=== PATIENT | male | born 1940 | race Caucasian/White ===

== ENCOUNTER 2017-06-15 12:08 | Emergency (ER) | payer BC ==
[~2017-06-15] VITALS: Ht 172.7 cm; Wt 79.2 kg
[2017-06-15] MEDS ORDERED: DEXL30CA5 PO (12:19)
[2017-06-15] MEDS ORDERED: ROSU5TAB PO (12:19)
[2017-06-15] MEDS ORDERED: CLOP1TAB15 PO (12:19)
[2017-06-15] MEDS ORDERED: ASPCH81X PO (12:19)
[2017-06-15] MEDS ORDERED: ALT/10 PO (12:19)
[2017-06-15] MEDS ORDERED: SODIUM CHLORIDE 0.9% 1000ML 1,000 ML IV STA ×2 (12:26→13:46)
[2017-06-15] MEDS ORDERED: DIAZEPAM INJ 5 MG/ML 2 ML CARP IV STA (12:34)
[2017-06-15] MEDS ORDERED: ACETAMINOPHEN IV 100 ML IV STA (12:34)
[2017-06-15] MEDS ORDERED: ONDANSETRON 8 MG/54 ML D5W IV ONE (12:45)
[2017-06-15] MEDS ORDERED: OPTIRAY 320 IV PRN (12:45)
[2017-06-15 12:53] LABS: BASO % 0.4 %; BASO ABS # 0.04 K/uL (0-0.2); COMPLETE YES; EOS % 1.8 %; IG% 0.8 %; LYMPH % 42.6 %; LYMPH ABS # 3.95 K/uL (1.2-3.4); MEAN CELL VOLUME 94.5 fL (80-100); MEAN CORPUSCULAR HEMOGLOBIN 31.3 pg (25-34); MEAN CORPUSCULAR HGB CONC 33.2 g/dl (32-36); MEAN PLATELET VOLUME 9.5 fL (7.4-10.4); MONO % 6.5 %; NEUT % 47.9 %; PLATELET COUNT 283 K/uL (130-400); RED BLOOD COUNT 4.34 M/uL (4.7-6.1); WHITE BLOOD COUNT 9.27 K/uL (4.8-10.8)
[2017-06-15 12:54] LABS: ISTAT CREATININE 0.9 mg/dl (0.6-1.3); ISTAT HEMOGLOBIN 13.9 g/dl (14.0-18.0); ISTAT IONIZED CALCIUM 1.17 mmol/l (1.12-1.32)
[2017-06-15 13:04] LABS: PARTIAL THROMBOPLASTIN RATIO 0.8; PROTHROMBIN TIME (PATIENT) 10.2 SECONDS (9.0-12.0)
--- NOTE | 2017-06-15 13:05 | DIAGNOSTIC IMAGING REPORT ---
HEAD WITHOUT CONTRAST (CT) CT DOSE: HISTORY: Mental status change STROKE ALERT TECHNIQUE: Multiaxial CT images of the head were performed without the use of intravenous contrast. A dose lowering technique was utilized adhering to the principles of ALARA. Comparison: None. Findings: The paranasal sinuses and mastoid air cells are clear. Evidence for acute hemorrhage involving the bulk of the ventricles. This involves the lateral ventricles, third, as well as fourth ventricle. It potentially is a parenchymal component to the central cerebellar hemisphere. There is no midline shift. There is no evidence for hydrocephalus. There are findings of moderate chronic small vessel change of aging. Impression: 1. Acute intraventricular hemorrhage involving the lateral third and fourth ventricles. 2. Possible parenchymal component involving the medial cerebellar hemispheres versus pontine medullary junction.. 3. No midline shift. The above report was generated using voice recognition software. It may contain grammatical, syntax or spelling errors. Electronically signed by: Wilfred Do M.D. 06/15/2017 1:03 PM Dictated Date/Time: 06/15/2017 12:59 PM
[2017-06-15 13:10] LABS: ALT/SGPT 23 U/L (12-78); BLOOD UREA NITROGEN 20 mg/dl (7-18); BUN/CREATININE RATIO 23.9 (10-20); CALCIUM 9.4 mg/dl (8.5-10.1); CARBON DIOXIDE 24 mmol/L (21-32); CHLORIDE 106 mmol/L (98-107); CREATININE 0.83 mg/dl (0.60-1.40); GLUCOSE 145 mg/dl (70-99); POTASSIUM 3.3 mmol/L (3.5-5.1); SODIUM 139 mmol/L (136-145)
[2017-06-15 13:15] VITALS: Ht 172.7 cm; Wt 79.2 kg
[2017-06-15] MEDS ORDERED: PROMETHAZINE HCL INJ 12.5 MG in SODIUM CHLORIDE 0.9% 50ML 50 ML IV STA (13:19)
[2017-06-15 13:21] LABS: ALKALINE PHOSPHATASE 113 U/L (45-117); AST/SGOT 23 U/L (15-37); THYROID STIMULATING HORMONE 0.538 uIu/ml (0.300-4.500)
[2017-06-15] MEDS ORDERED: PROMETHAZINE HCL INJ 25 MG/ML 1 ML VIAL ONE (13:21)
[2017-06-15 13:32] VITALS: BP 136/68; PULSE 76; TEMP 36.6; O2SAT 100
[2017-06-15 13:40] VITALS: BP 132/74; PULSE 73; TEMP 35.7; O2SAT 97
[2017-06-15 13:45] VITALS: O2SAT 98
[2017-06-15 14:34] VITALS: BP 124/71; PULSE 76; TEMP 35.7; O2SAT 99
--- NOTE | 2017-06-15 16:43 | EMERGENCY ROOM VISIT NOTE ---
History Report prepared by Alison: Juany Spence Under the Supervision of: Dr. Sinan Gutierrez M.D. First contact with patient: 12:26 Chief Complaint: DIZZY Stated Complaint: VISION PROBLEMS/VERTIGO Nursing Triage Summary: pt arrives via EMS reports after riding to the game got out of vehicle and walked to back became dizzy and was helped to the ground by spouse and others, reports MASON , Nausea and . pt reports last 2 days vision in R eye "was not right" History of Present Illness The patient is a 77 year old male who presents to the Emergency Room with complaints of persistent dizziness starting around 1130 today. The patient arrived in [place] from [place] for the game today. He got out of the car and was walking around it when he started feeling dizzy. He has never had this dizziness before. He did not have any symptoms prior to getting out of the car. He currently has a headache which he rates as a 9/10 in severity. He usually does not have headaches. He has not had any headaches in the past 2 weeks. He is nauseous. Yesterday, he had some blurry vision in his right eye. His did not notice any facial droop or slurred speech today. He has a history of TIA, right carotid stent, and hypertension. He has had a heart catheterization which was normal. He does not have any heart stents. Pt denies LOC, fevers, chills, diaphoresis, neck pain, chest pain, breathing difficulties , vomiting, abdominal pain, back pain, melena, hematochezia, urinary symptoms, numbness, weakness, lymphadenopathy, rash, or other complaints. Source of History: patient, spouse/significant other Onset: 1130 Position: other (global) Quality: other (dizziness) Timing: other (persistent) Associated Symptoms: + headache, + nausea Note: Pt reports blurry vision. Review of Systems See HPI for pertinent positives and negatives. A total of ten systems were reviewed and were otherwise negative. Past Medical & Surgical Medical Problems: (1) carotid stent (2) Hypercholesteremia (3) Hypertension (4) TIA (transient ischemic attack) Surgical Problems: (1) H/O cardiac catheterization Family History Noncontributory secondary to age. Social History Smoking Status: Former Smoker Marital Status: Housing Status: lives with family Occupation Status: retired Current/Historical Medications Scheduled Aspirin (Aspirin Chewable), 81 MG PO DAILY Clopidogrel (Plavix), 75 MG PO DAILY Dexlansoprazole (Dexilant), 30 MG PO DAILY Ramipril (Altace), 10 MG PO QPM Rosuvastatin Calcium (Crestor), 5 MG PO DAILY Allergies Coded Allergies: No Known Allergies (Unverified , 06/15/17) Physical Exam Vital Signs Date Time Temp Pulse Resp B/P (MAP) Pulse Ox O2 Delivery O2 Flow Rate FiO2 06/15/17 14:34 35.7 76 17 124/71 99 06/15/17 14:34 35.7 76 17 124/71 99 06/15/17 14:08 76 17 99 06/15/17 14:03 67 15 97 06/15/17 14:00 124/71 06/15/17 13:58 63 15 98 06/15/17 13:55 127/74 06/15/17 13:53 68 19 99 06/15/17 13:51 131/58 06/15/17 13:48 77 21 100 06/15/17 13:45 98 Nasal Cannula 2.0 06/15/17 13:43 81 25 98 06/15/17 13:40 35.7 73 19 132/74 97 2.0 06/15/17 13:40 127/66 06/15/17 13:38 77 19 99 06/15/17 13:35 132/74 06/15/17 13:33 77 18 100 06/15/17 13:32 36.6 76 17 136/68 100 2.0 06/15/17 13:30 136/68 06/15/17 13:28 80 22 06/15/17 13:26 138/59 06/15/17 13:23 85 29 100 06/15/17 13:21 180/102 06/15/17 13:18 79 24 100 06/15/17 13:13 80 23 100 06/15/17 13:11 100 Nasal Cannula 2.0 06/15/17 13:10 142/71 06/15/17 13:08 87 21 99 06/15/17 13:05 121/64 06/15/17 13:03 82 24 100 06/15/17 13:00 147/71 06/15/17 13:00 85 06/15/17 12:59 144/71 06/15/17 12:13 36.6 87 20 156/78 98 Room Air 06/15/17 12:13 156/78 Physical Exam GENERAL: Awake, alert, well appearing, no distress HENT: Normocephalic, atraumatic. TM's normal. Oropharynx unremarkable. EYES: PERRL. EOMI. Normal conjunctiva. Sclera non-icteric. NECK: Supple. No nuchal rigidity. FROM. No JVD or bruit. RESPIRATORY: CTA CARDIAC: RRR. No murmur. ABDOMEN: Soft, non distended. No tenderness to palpation. No rebound or guarding. No masses. RECTAL: Deferred. MUSCULOSKELETAL: Unremarkable. No edema. No discoloration. Gross motor strength symmetric. NEURO: No facial droop. Altered sensorium. Very lethargic, but responds to verbal stimuli. Ophthalmoplegia. No sensory or motor deficits noted. Speech normal. No pronator drift. SKIN: No rash or jaundice noted. LYMPH: No adenopathy. Medical Decision & Procedures ER Provider Diagnostic Interpretation: Radiology results as stated below per my review and radiologist interpretation: HEAD WITHOUT CONTRAST (CT) CT DOSE: HISTORY: Mental status change STROKE ALERT TECHNIQUE: Multiaxial CT images of the head were performed without the use of intravenous contrast. A dose lowering technique was utilized adhering to the principles of ALARA. Comparison: None. Findings: The paranasal sinuses and mastoid air cells are clear. Evidence for acute hemorrhage involving the bulk of the ventricles. This involves the lateral ventricles, third, as well as fourth ventricle. It potentially is a parenchymal component to the central cerebellar hemisphere. There is no midline shift. There is no evidence for hydrocephalus. There are findings of moderate chronic small vessel change of aging. Impression: 1. Acute intraventricular hemorrhage involving the lateral third and fourth ventricles. 2. Possible parenchymal component involving the medial cerebellar hemispheres versus pontine medullary junction.. 3. No midline shift. The above report was generated using voice recognition software. It may contain grammatical, syntax or spelling errors. Electronically signed by: Wilfred Do M.D. 06/15/2017 1:03 PM Dictated Date/Time: 06/15/2017 12:59 PM Laboratory Results 06/15/17 12:35 Red Blood Count 4.34, Mean Corpuscular Volume 94.5, Mean Corpuscular Hemoglobin 31.3, Mean Corpuscular Hemoglobin Concent 33.2, Mean Platelet Volume 9.5, Neutrophils (%) (Auto) 47.9, Lymphocytes (%) (Auto) 42.6, Monocytes (%) (Auto) 6.5, Eosinophils (%) (Auto) 1.8, Basophils (%) (Auto) 0.4, Neutrophils # (Auto) 4.44, Lymphocytes # (Auto) 3.95, Monocytes # (Auto) 0.60, Eosinophils # (Auto) 0.17, Basophils # (Auto) 0.04 06/15/17 12:35 Test 06/15/17 12:35 06/15/17 12:44 06/15/17 12:45 06/15/17 13:04 White Blood Count 9.27 K/uL (4.8-10.8) Red Blood Count 4.34 M/uL (4.7-6.1) Hemoglobin 13.6 g/dL (14.0-18.0) Hematocrit 41.0 % (42-52) Mean Corpuscular Volume 94.5 fL (80-100) Mean Corpuscular Hemoglobin 31.3 pg (25-34) Mean Corpuscular Hemoglobin Concent 33.2 g/dl (32-36) Platelet Count 283 K/uL (130-400) Mean Platelet Volume 9.5 fL (7.4-10.4) Neutrophils (%) (Auto) 47.9 % Lymphocytes (%) (Auto) 42.6 % Monocytes (%) (Auto) 6.5 % Eosinophils (%) (Auto) 1.8 % Basophils (%) (Auto) 0.4 % Neutrophils # (Auto) 4.44 K/uL (1.4-6.5) Lymphocytes # (Auto) 3.95 K/uL (1.2-3.4) Monocytes # (Auto) 0.60 K/uL (0.11-0.59) Eosinophils # (Auto) 0.17 K/uL (0-0.5) Basophils # (Auto) 0.04 K/uL (0-0.2) RDW Standard Deviation 48.1 fL (36.4-46.3) RDW Coefficient of Variation 13.9 % (11.5-14.5) Immature Granulocyte % (Auto) 0.8 % Immature Granulocyte # (Auto) 0.07 K/uL (0.00-0.02) Prothrombin Time 10.2 SECONDS (9.0-12.0) Prothromb Time International Ratio 1.0 (0.9-1.1) Activated Partial Thromboplast Time 21.0 SECONDS (21.0-31.0) Partial Thromboplastin Ratio 0.8 Est Creatinine Clear Calc Drug Dose 72.1 ml/min Estimated GFR () 98.4 Estimated GFR (Non- 84.9 BUN/Creatinine Ratio 23.9 (10-20) Calcium Level 9.4 mg/dl (8.5-10.1) Magnesium Level 2.0 mg/dl (1.8-2.4) Total Bilirubin 0.4 mg/dl (0.2-1) Direct Bilirubin 0.1 mg/dl (0-0.2) Aspartate Amino Transf (AST/SGOT) 23 U/L (15-37) Alanine Aminotransferase (ALT/SGPT) 23 U/L (12-78) Alkaline Phosphatase 113 U/L (45-117) Troponin I < 0.015 ng/ml (0-0.045) Total Protein 7.3 gm/dl (6.4-8.2) Albumin 3.6 gm/dl (3.4-5.0) Lipase 97 U/L (73-393) Thyroid Stimulating Hormone (TSH) 0.538 uIu/ml (0.300-4.500) Bedside Hemoglobin 13.9 g/dl (14.0-18.0) Bedside Hematocrit 41 % (42-52) Bedside Sodium 140 mEq/L (135-144) Bedside Potassium 3.5 mEq/L (3.3-5.0) Bedside Chloride 104 mEq/L (101-112) Bedside Total CO2 23 mEq/l (24-31) Anion Gap 17.0 mmol/L (16-25) Bedside Blood Urea Nitrogen 20 mg/dl (7-18) Bedside Creatinine 0.9 mg/dl (0.6-1.3) Bedside Glucose (other) 151 mg/dl (70-99) Bedside Ionized Calcium (Elayne) 1.17 mmol/l (1.12-1.32) Bedside Glucose 141 mg/dl (70-99) Bedside Prothrombin Time INR 1.0 (0.9-1.1) Laboratory results reviewed by me Medications Administered Medications (Trade) Dose Ordered Sig/Kate Route Start Time Stop Time Status Last Admin Dose Admin Sodium Chloride 1,000 ml @ 125 mls/hr Q8H STAT IV 06/15/17 12:26 06/15/17 13:47 DC 06/15/17 12:26 125 MLS/HR Ondansetron HCl (Zofran 8mg Iv) 8 mg NOW ONCE IV 06/15/17 12:45 06/15/17 12:46 DC 06/15/17 12:45 8 MG Acetaminophen 100 ml @ 400 mls/hr NOW STAT IV 06/15/17 12:34 06/15/17 12:48 DC 06/15/17 12:34 400 MLS/HR Promethazine HCl 12.5 mg/Sodium Chloride 50.5 ml @ 204 mls/hr NOW STAT IV 06/15/17 13:19 06/15/17 13:33 DC 06/15/17 13:23 204 MLS/HR Sodium Chloride 1,000 ml @ 50 mls/hr Q20H STAT IV 06/15/17 13:46 06/15/17 15:00 DC 06/15/17 13:46 50 MLS/HR ECG Indication: other (dizziness) Rate (beats per minute): 93 Rhythm: normal sinus Findings: nonspecific-ST abn, no ectopy ED Course 1226: NSS 1000 ml @ 125 mls/hr IV. 1232: The patient was evaluated in room C7. A complete history and physical exam was performed. 1234: Acetaminophen 100 ml @ 400 mls/hr IV. 1245: Ondansetron HCl 8 mg IV. 1302: I spoke with Dr. Do of radiology. He confirmed the presence of an intracerebral hemorrhage. 1308: I discussed the patient's case with Dr. Contreras, [facility] neurosurgery. He has accepted the patient for transfer. He will be flown to their facility. 1313: I reevaluated the patient. He is still sleepy, but easily arouses. He is answering questions appropriately and moving extremities appropriately. I discussed the test results with him and his family. They verbalized agreement of the treatment plan. He will be flown to [facility] for further treatment. 1319: Promethazine HCl 12.5 mg/Sodium Chloride 50.5 ml @ 204 mls/hr IV. 1323: I obtained consent for platelet transfusion. Nick is prepping for the flight. 1336: I reevaluated the patient. His vitals are stable. He is receiving platelets. 1345: I reevaluated the patient. The platelets have been infused. His nausea has resolved. He is resting comfortably. 1346: NSS 1000 ml @ 50 mls/hr IV. 1358: I updated the patient's family on the results and treatment plan. 1415: I met with the flight crew. The patient is being loaded on the stretcher. Patient stable prior to transfer. Medical Decision Triage Nursing notes reviewed. The patient's presentation and history were concerning for dizziness and double vision. Etiologies such as intracranial hemorrhage, tumor, benign positional vertigo, infection, hypoglycemia, electrolyte abnormalities, cardiac sources, toxicologic , neurologic, as well as others were entertained. The patient was evaluated. During the interview process and physical examination the patient became somewhat more lethargic. He was still following commands but was more sleepy. He responded to verbal direction. His GCS dropped from 15 to 14. Blood work was obtained. He was given IV Zofran. IV Tylenol was ordered. The patient had CT imaging ordered. ECG did not reveal any dysrhythmia. Bedside glucose was unremarkable. The patient was taken emergently to CT imaging. I-STAT chemistries were unremarkable. I did escort the patient to CT imaging. The patient was found to have an intracranial hemorrhage on dry CT. CTA was canceled. I contacted [facility] after discussion with the patient's . I discussed the case with neurosurgery, Dr. Contreras. He accepted the patient in transfer. He did ask the patient to receive platelets as he takes aspirin and Plavix. The patient's blood pressure was within acceptable range. He had one brief episode where his blood pressure spiked to 180 momentarily when he was very nauseated and had dry heaving. This corrected easily with a small dose of IV Phenergan. The patient did not receive any narcotics or benzodiazepines. The entire time he was sleepy but easily arousable. His speech became somewhat garbled but was still clear enough to comprehend. The patient's initial IV fluids were started at 125 mL an hour and then decreased to 50 mL an hour. He was kept nothing by mouth. The head of the patient's bed was kept elevated around 30. The flank or arrived. I did inform them of the patient's history and findings. The patient's was present the entire time. She agreed and consented to the transfer to [place]. Prior to transfer the patient was reassessed. He was hemodynamically stable. He was maintaining his airway. His neurologic status was unchanged. Patient was transferred emergently for further care by [place] neurosurgery and critical care. Medication Reconcilliation Current Medication List: was personally reviewed by me Blood Pressure Screening Patient's blood pressure: Elevated blood pressure Referred to [place]. Consults Time Called: 1303 Consulting Physician: Dr. Contreras, [facility] neurosurgery Returned Call: 1308 I discussed the patient's case with him. He has accepted the patient for transfer. He will be flown to their facility. Impression Primary Impression: Intracranial hemorrhage Critical Care I have personally spent greater than 75 minutes of critical care time in the direct management of this patient. This includes bedside care, interpretation of diagnostic studies, and testing, discussion with consultants, patient, and family members, and other required patient management activities. This 75 minutes is in excess of all separately billable procedures. Scribe Attestation The scribe's documentation has been prepared under my direction and personally reviewed by me in its entirety. I confirm that the note above accurately reflects all work, treatment, procedures, and medical decision making performed by me. Departure Information Dispostion Transfer Acute Care Facility Patient Instructions My [facility] Stroke History Time Last Known Well 1130 Stroke t-PA Criteria Reviewed Does NOT meet criteria for t-PA Reason t-PA Not Given Treatment not indicated
== END 2017-06-15 14:25 | disposition short-term general hospital (02) ==
LOC: C.EDC 12:12 → C.ED 14:25
DX: I62.9 Nontraumatic intracranial hemorrhage, unspecified (principal); Z86.73 Personal history of transient ischemic attack (TIA), and cerebral infarction without residual deficits; I10 Essential (primary) hypertension; E78.00 Pure hypercholesterolemia, unspecified; Z87.891 Personal history of nicotine dependence; Z79.82 Long term (current) use of aspirin; Z79.02 Long term (current) use of antithrombotics/antiplatelets; Z79.899 Other long term (current) drug therapy